=== PATIENT | female | born 1970 | race African-American/Black ===

== ENCOUNTER 2021-12-10 09:05 | Emergency (ER) | payer BC ==
[~2021-12-10] VITALS: Ht 165.1 cm; Wt 88.6 kg
[~2021-12-10 09:05] MED LIST: LEADER CLE17 GM/Dose PO; LEVOXYL0.175 MG PO; MAGNESIUM250 M1 PO; NAPROSYN500 MG PO; PRIL40 PO; PROBIOTIC FORMU1 CAP PO
[2021-12-10 09:06] VITALS: TEMP 97.9
[2021-12-10] MEDS ORDERED: SYNTHROID0.075 MG/T PO (09:13)
[2021-12-10 09:38] LABS: BASO % 0.7 % (0.0-2.0); EOS # 0.1 K/mm3 (0.0-0.7); EOS % 2.4 % (0.0-4.0); GRAN # 1.4 K/mm3 (1.4-6.5); GRAN % 47.7 % (42.2-75.2); LYMPH # 1.2 K/mm3 (1.2-3.4); LYMPH % 39.4 % (20.0-51.0); MEAN CELL VOLUME 75 fl (80.0-100.0); MEAN CORPUSCULAR HGB CONC 30 g/dl (33.0-37.0); MEAN PLATELET VOLUME 11.5 fl (7.4-10.4); MONO # 0.3 K/mm3 (0.1-0.6); MONO % 9.8 % (1.7-9.3); PLATELET COUNT 263 K/mm3 (130-400); RED BLOOD COUNT 3.51 M/mm3 (4.10-5.30); REDCELL DISTRIBUTION WIDTH-CV 17.3 % (11.5-14.5)
[2021-12-10 09:39] LABS: HEMATOCRIT 26.3 % (37.0-47.0); MEAN CORPUSCULAR HEMOGLOBIN 23 pg (27-31)
[2021-12-10 09:47] LABS: ALBUMIN 3.3 gm/dL (3.5-5.0); ALKALINE PHOSPHATASE 110 U/L (40-150); ANION GAP 7 mmol/L (7-16); AST,SGOT 11 U/L (5-34); BILIRUBIN,TOTAL 0.3 mg/dL (0.2-1.2); BLOOD UREA NITROGEN 10 mg/dL (7-19); CALCIUM 8.2 mg/dL (8.4-10.2); CARBON DIOXIDE 22 mmol/L (22-29); CHLORIDE 107 mmol/L (98-107); CREATININE, serum 0.77 mg/dL (0.57-1.11); GLUCOSE 105 mg/dL (70-99); LIPASE 16 U/L (8-78); POTASSIUM 3.9 mmol/L (3.5-4.5); SODIUM 136 mmol/L (136-145); TOTAL PROTEIN 6.7 gm/dL (6.2-8.1)
[2021-12-10 09:48] LABS: ALANINE AMINOTRANSFERASE < 6 U/L (0-55)
[2021-12-10 10:40] LABS: COLLECTION METHOD CLEAN CATCH
[2021-12-10 11:00] LABS: MUCOUS Present (NOT PRESENT); PH 7 (5-8); SQUAMOUS EPITHELIAL 0-2 /hpf (0-10); URINE APPEARANCE Clear (CLEAR/HAZY); URINE BACTERIA None Seen /hpf (NONE SEEN); URINE BILIRUBIN Negative (NEGATIVE); URINE BLOOD 1+ (NEGATIVE); URINE COLOR Straw (YELLOW); URINE GLUCOSE Negative (NEGATIVE); URINE KETONE Negative (NEGATIVE); URINE LEUKOCYTE ESTERASE Negative (NEGATIVE); URINE NITRATE Negative (NEGATIVE); URINE PROTEIN(semi-quant) Negative (NEGATIVE); URINE UROBILINOGEN Negative (NEGATIVE)
[2021-12-10] MEDS ORDERED: PEPCID 20MG TAB20 MG PO (11:22)
[2021-12-10] MEDS ORDERED: ZOFRAN ODT4 MG PO (11:24)
[2021-12-10 12:06] VITALS: BP 123/83; PULSE 72
== END 2021-12-10 11:59 | disposition home or self-care (01) ==
LOC: COL.ER 09:05 → EDBD 09:06 → COL.ER 11:59
PROVIDERS: Emergency Medicine
DX: D61.818 Other pancytopenia (principal); R10.32 Left lower quadrant pain; R10.31 Right lower quadrant pain; E03.9 Hypothyroidism, unspecified; Z79.890 Hormone replacement therapy; Z32.02 Encounter for pregnancy test, result negative
CPT/HCPCS: J1885; J2405; J7030; Q9967

== ENCOUNTER 2022-04-07 12:10 | Emergency (ER) | payer BC ==
[~2022-04-07] VITALS: Ht 162.6 cm; Wt 88.2 kg
[~2022-04-07 12:10] MED LIST changes: +PEPCID 20MG TAB20 MG PO; +SYNTHROID0.075 MG/T PO; +ZOFRAN ODT4 MG PO
[2022-04-07 12:22] VITALS: TEMP 98.2
[2022-04-07 12:46] LABS: BASO % 0.3 % (0.0-2.0); EOS # 0.1 K/mm3 (0.0-0.7); EOS % 1.9 % (0.0-4.0); GRAN # 1.5 K/mm3 (1.4-6.5); GRAN % 48.6 % (42.2-75.2); HEMOGLOBIN 10.2 g/dl (12.5-16.0); LYMPH # 1.2 K/mm3 (1.2-3.4); LYMPH % 38.2 % (20.0-51.0); MEAN CELL VOLUME 82 fl (80.0-100.0); MEAN CORPUSCULAR HEMOGLOBIN 26 pg (27-31); MEAN CORPUSCULAR HGB CONC 32 g/dl (33.0-37.0); MEAN PLATELET VOLUME 10.6 fl (7.4-10.4); MONO # 0.3 K/mm3 (0.1-0.6); MONO % 10.7 % (1.7-9.3); PLATELET COUNT 212 K/mm3 (130-400); RED BLOOD COUNT 3.91 M/mm3 (4.10-5.30)
[2022-04-07 12:52] LABS: ALBUMIN 3.3 gm/dL (3.5-5.0); BILIRUBIN,TOTAL 0.3 mg/dL (0.2-1.2); CALCIUM 7.8 mg/dL (8.4-10.2); CREATININE, serum 0.62 mg/dL (0.57-1.11); POTASSIUM 3.8 mmol/L (3.5-4.5); TOTAL PROTEIN 6.7 gm/dL (6.2-8.1)
[2022-04-07 13:00] LABS: COLLECTION METHOD CLEAN CATCH
[2022-04-07 13:09] LABS: MUCOUS Present (NOT PRESENT); PH 7 (5-8); URINE APPEARANCE Clear (CLEAR/HAZY); URINE BACTERIA Rare /hpf (NONE SEEN); URINE BILIRUBIN Negative (NEGATIVE); URINE BLOOD 2+ (NEGATIVE); URINE COLOR Yellow (YELLOW); URINE GLUCOSE Negative (NEGATIVE); URINE KETONE Negative (NEGATIVE); URINE LEUKOCYTE ESTERASE Trace (NEGATIVE); URINE NITRATE Negative (NEGATIVE); URINE PROTEIN(semi-quant) Negative (NEGATIVE); URINE RBC 20-50 /hpf (0-2); URINE UROBILINOGEN Negative (NEGATIVE)
[2022-04-07] MEDS ORDERED: ZOFRAN ODT4 MG PO (15:43)
[2022-04-07 15:45] VITALS: BP 130/79; PULSE 66
== END 2022-04-07 16:00 | disposition home or self-care (01) ==
LOC: COL.ER 12:10
PROVIDERS: Nurse Practitioner Primary Care
DX: R10.31 Right lower quadrant pain (principal); R10.32 Left lower quadrant pain; D64.9 Anemia, unspecified; Z79.899 Other long term (current) drug therapy; Z20.822 Contact with and (suspected) exposure to COVID-19
CPT/HCPCS: J7030; Q9967

== ENCOUNTER → 2022-05-04 | Outpatient (CLI) | payer BC | LOC: MC.RAD 13:30 | DX: Z12.31 Encounter for screening mammogram for malignant neoplasm of breast (principal) ==

== ENCOUNTER → 2022-07-14 | Outpatient (CLI) | payer BC | LOC: COL.RAD 10:27 | DX: R22.42 Localized swelling, mass and lump, left lower limb (principal) ==

== ENCOUNTER 2023-01-28 14:53 | Emergency (ER) | payer BC ==
[~2023-01-28] VITALS: Ht 162.6 cm; Wt 87.3 kg
[2023-01-28] MEDS ORDERED: FLEXERIL5 MG PO (17:49)
[2023-01-28] MEDS ORDERED: MOTRIN 800800 MG/TAB PO (17:49)
[2023-01-28 18:15] VITALS: BP 125/85; PULSE 69; TEMP 98.2
== END 2023-01-28 18:20 | disposition home or self-care (01) ==
LOC: COL.ER 14:53
DX: M54.50 Low back pain, unspecified (principal)
CPT/HCPCS: J1885

== ENCOUNTER → 2023-10-31 | Outpatient (CLI) | payer BC ==
[~2023-10-31] MED LIST changes: +FLEXERIL5 MG PO; +MOTRIN 800800 MG/TAB PO; +PERCOCET 325 MG1 TA2 PO
== END ==
LOC: COL.CARD 11:02
DX: R00.0 Tachycardia, unspecified (principal)

== ENCOUNTER → 2024-09-02 | Outpatient (CLI) | payer BC | LOC: COL.RAD 09:53 | DX: I82.890 Acute embolism and thrombosis of other specified veins (principal); M79.5 Residual foreign body in soft tissue ==